=== PATIENT | male | born 1995 | race Caucasian/White ===

== ENCOUNTER 2021-09-27 13:36 | Emergency (ER) | payer MEDICAID, MEDICARE ==
[~2021-09-27] VITALS: Ht 180 cm; Wt 111.0 kg
[2021-09-27 13:36] VITALS: BP 133/85
--- NOTE | 2021-09-27 13:59 | ED Psychosocial ---
General Chief Complaint: Psych/Social Disorder Stated Complaint: PSYCH ISSUES Source: patient Exam Limitations: no limitations History of Present Illness Date Seen by Provider: Sep 27, 2021 Time Seen by Provider: 13:36 Initial Comments Patient to the ER by EMS from [place] [facility] [employer] where he states he is out of his medications, Latuda and want some help getting back on that. He says he [facility] and on his medications from there except they had stopped his Latuda which he says was very successful for him because it was not on formulary. They tried multiple different drugs including Geodon, Vistaril, Zyprexa etc. and he had dystonic reactions from these medications. He is now on Cogentin. He takes Depakote for seizures which he has continued to take. He wants to get back on his Latuda. After [facility] he was using methamphetamines unsuccessfully to treat his depression. Then he went to [facility] for inpatient treatment. While he was at [place] apparently they did not want to continue his Latuda so he decided to sign himself out and caught a ride by a [employer] van from [place] to [place] [employer]. He was trying to contact his ground intelligence officer to let them know that he signed himself out of the inpatient treatment center. He left a voicemail with him but has not heard back. He lives in [place] presently and is on his way there. He has appointments with outpatient psychiatry on October 11, 2 weeks from now. He does not want to wait that long as he is afraid that the temptation to self medicate with methamphetamines will be too high. Allergies and Home Medications Allergies Coded Allergies: No Known Drug Allergies (Unverified , 09/27/21) Patient Home Medication List Home Medication List Reviewed: Yes Review of Systems Constitutional: No chills, No diaphoresis EENTM: No ear discharge, No hearing loss Respiratory: No cough, No short of breath Cardiovascular: No chest pain, No Hx of Intervention Gastrointestinal: No abdominal pain, No nausea Genitourinary: No discharge, No dysuria Musculoskeletal: No back pain, No joint pain All Other Systems Reviewed Negative Unless Noted: Yes Past Rauonis-Tvtkui-Xzdjgr Hx Patient Social History Use of E-Cig and/or Vaping dev: No Substance use?: Yes Substance type: Methamphetamine Physical Exam Capillary Refill : Height, Weight, BMI Height: '" Weight: lbs. oz. kg; BMI Method: General Appearance: WD/WN, no apparent distress HEENT: PERRL/EOMI, pharynx normal Neck: full range of motion, normal inspection Respiratory: lungs clear, normal breath sounds, no respiratory distress, no accessory muscle use Cardiovascular: normal peripheral pulses, regular rate, rhythm Neurologic/Psychiatric: alert, oriented x 3, other (Mildly anxious affect) Thoughts/Hallucinations: other (Denies suicidal or homicidal ideation) Progress/Results/Core Measures Progress Progress Note #1: Time: 13:59 Progress Note We do not have any lurasidone on formulary here at the emergency room. We can however give him a prescription for some across the street at the [facility] pharmacy and he is okay with that plan. We called [facility] and since he does not currently receive services through them he would be greater than 2 weeks for him to get an appointment with the therapist. Called [facility] and left a voicemail for Mitzy BTriston Will discuss whether we can get the patient seen any sooner. Progress Note #2: Time: 14:17 Progress Note Mitzy Basurto is back at 1410. We discussed the case. She looked and could not find a closer date for him to get in. We will provide him with [facility]'s number so he can look for a closer provider than having to come back to [place] for primary care. Patient is speaking to Raegan who is a friend of the family who he says he might be able to stay with for few days and then also has his dad in [place] he can stay with. Called pharmacy and olguin harris would be about $600 for Latuda. Patient states he was only paying $4 for it. Suspicious maybe this is not the right medication. However it is a reasonable medication to use given his circumstances. We will send a prescription over there and he will have to take his Medicaid information over to run it. Departure Impression Primary Impression: Depression Qualified Codes: F32.9 - Major depressive disorder, single episode, unspecified Disposition: 01 HOME, SELF-CARE Condition: Stable Departure-Patient Inst. Decision time for Depature: 14:32 Referrals: [facility] Patient Instructions: Depression, Adult ED Add. Discharge Instructions: We have sent a prescription over for Latuda. If it is prohibitively expensive then I recommend you call [facility] at [phone]. Confirm that Latuda is the actual medication you were taking before. [facility] can be reached at the number listed below. They often can help with expensive medications as well. You can call them and see if you get a closer follow-up appointment horn of their primary care provider teams and apply for access to their extensive pharmacy benefits. All discharge instructions reviewed with patient and/or family. Voiced understanding. Scripts Lurasidone HCl (Latuda) 20 Mg Tablet 20 MG PO DAILY for 14 Days, #14 TAB 0 Refills Prov: LOUIS AGARWAL 09/27/21 Copy Copies To 1: GAUTAM MARTINI DO LOUIS AGARWAL Sep 27, 2021 13:59
[2021-09-27] MEDS ORDERED: LURA20TA PO (14:35)
--- OUTSIDE RECORDS SUMMARY | 2021-10-02 10:07 | XMS REPORT | Clinical Summary ---
Author Author [facility] Organization [facility] Address Unknown Phone Unavailable Care Team Providers Care Service Restorer Emergency Name Role Phone Self, Referral PCP Unavailable Gilberto Dawkins RN Unavailable Unavailable Gavi Jarvis RN Unavailable Unavailable Milagro Chatterjee RN Unavailable Unavailable Source Comments Some departments are not documenting in the electronic medical record. If you d o not see the information that you expected, contact Release of Information in [facility] with [facility] [employer] Information Management department at [phone] for further assistan ce in locating additional records.[facility] Allergies No known active allergies Medications End Date Status Medication Sig Dispensed Refills Start Date Active DIVALPROEX SODIUM Take by 0 (DEPAKOTE PO) mouth. Active ARIPIPRAZOLE (ABILIFY PO) Take by 0 mouth. Active SULFAMETHOXAZOLE/TRIMETHO Take by 0 PRIM (BACTRIM PO) mouth. Active trimethoprim/sulfamethoxa Take by 40 Tab 0 zole (BACTRIM DS) 160/800 mouth Twice 0 mg tablet Daily. Take 2 tabs twice daily x 10 days. Active Problems Not on file Medical History Medical History Date Comments Psychiatric illness Social History Date Tobacco Use Types Packs/Day Years Used Never Assessed Sex Assigned at Date Recorded Not on file Last Filed Vital Signs Reading Time Taken Comments Vital Sign 129/66 11/01/2011 7:57 PM [employer] Blood Pressure 90 11/01/2011 7:57 PM [employer] Pulse 36.8 C (98.3 F) 06/28/2010 10:15 PM CDT Temperature - - Respiratory Rate 96% 11/01/2011 7:57 PM [employer] Oxygen Saturation - - Inhaled Oxygen Concentration 88 kg (194 lb 0.1 oz) 06/23/2010 9:04 PM CDT Weight - - Height - - Body Mass Index Plan of Treatment Health Maintenance Due Date Last Done Comments HIV SCREENING 2009 DTAP/TDAP VACCINES (1 - 2012 Tdap) HEPATITIS C SCREENING 2012 PHYSICAL (COMPREHENSIVE) 2012 EXAM INFLUENZA VACCINE 06/11/2021 HPV VACCINES Aged Out No longer eligible based on patient's age to complete this topic Results Not on filefrom Last 3 Months Care Teams Start Date End Date Service Restorer Emergency Relationship Specialty 01/08/10 Self, Referral PCP - General 09/11/10 Gilberto Dawkins, RN 09/11/10 Gavi Jarvis, DARRELL 11/01/11 Milagro Chatterjee, DARRELL Emergency Medicine
--- OUTSIDE RECORDS SUMMARY | 2021-10-02 10:07 | XMS REPORT | Clinical Summary ---
Author Author [facility] Organization [facility] Address Unknown Phone Unavailable Care Team Providers Care [place]ra [place]ta Setter Name Role Phone PCP Unavailable Allergies Comments Active Allergy Reactions Severity Noted Date Sulfa Antibiotics Hives 03/21/2013 Medications End Date Status Medication Sig Dispensed Refills Start Date Active levothyroxine (SYNTHROID) Take by mouth 0 50 MCG tabletIndications: nightly. Hypothyroidism Indications: Underactive Thyroid Active doxycycline (VIBRA-TABS) Take 100 mg 0 100 MG tabletIndications: by mouth 2 Acneiform Eruption (two) times daily. Indications: Skin Eruption Resembling Acne Active clonidine (CATAPRES) 0.1 Take 0.5 mg 0 MG tablet by mouth nightly. Active trazodone (DESYREL) 100 Take 200 mg 0 MG tablet by mouth nightly. Active haloperidol (HALDOL) 5 MG Inject 125 mg 0 tablet into the muscle every 28 days. Active thiothixene (NAVANE) 5 MG Take 5 mg by 0 capsule mouth 3 (three) times daily. Active Magnesium 500 MG TABS Take 500 mg 0 by mouth every other day. Active docusate sodium (COLACE) Take 200 mg 0 100 MG capsule by mouth nightly. Active cloNIDine (CATAPRES) 0.1 Take 1 tablet 30 tablet 0 07/13/201 MG tablet (0.1 mg 5 total) by mouth daily. Active Problems Problem Noted Date Foreign body in digestive system, unspecified 2012 Hematochezia 03/18/2013 Mood disorder 10/24/2011 ADHD (attention deficit hyperactivity disorder) 10/11 Resolved Problems Problem Noted Date Resolved Date Overdose 10/24/2011 10/26/2011 Social History Date Tobacco Use Types Packs/Day Years Used Quit: 06/13/2011 Current Every Day Smoker Cigars 1 3 Smokeless Tobacco: Never Used Tobacco Cessation: Ready to Quit: No; Co unseling Given: Yes Comments: Quit smoking: Year stopped 2009/Number of yrs: 2.00/Packs per day: 0.50/Pack* Comments Alcohol Use Standard Drinks/Week pt's last drink 3 days ago. No 0 (1 standard drink = 0.6 o z pure alcohol) Alcohol Habits Answer Date Recorded How often do you have a drink containing alcohol? No t asked How many drinks containing alcohol do you have on No t asked a typical day when you are drinking? How often do you have six or more drinks on one Not asked occasion? Comment: pt's last drink 3 days ago. 07/13/2015 [employer] Comments Sexually Active Condom Female Yes Sex Assigned at Date Recorded Not on file Last Filed Vital Signs Reading Time Taken Comments Vital Sign 122/56 07/13/2015 5:30 AM CDT Blood Pressure 81 07/13/2015 5:30 AM CDT Pulse 36.4 C (97.5 F) 07/13/2015 4:15 AM CDT Temperature 16 07/13/2015 5:30 AM CDT Respiratory Rate 100% 07/13/2015 5:30 AM CDT Oxygen Saturation - - Inhaled Oxygen Concentration 90.7 kg (200 lb) 07/13/2015 4:15 AM CDT Weight 182.9 cm (6') 07/13/2015 4:15 AM CDT Height 27.12 07/13/2015 4:15 AM CDT Body Mass Index Plan of Treatment Health Maintenance Due Date Last Done Comments Varicella Vaccines (1 of 1995 2 - 2-dose childhood series) COVID-19 Vaccine (1) 1999 Hepatitis C Screening 2012 DTaP,Tdap,and Td Vaccines 2013 (1 - Tdap) MMR Vaccines-Adult 2013 Influenza Vaccine (#1) 2021 Pneumo-Vaccine: 65+Yrs (1 2059 of 1 - PPSV23) HIB Vaccines Aged Out No longer eligible based on patient's age to complete this topic IPV Vaccines Aged Out No longer eligible based on patient's age to complete this topic Meningococcal Vaccine Aged Out No longer eligib le based on patient's age to complete this topic Pneumo-Vaccine: Peds (0-5 Aged Out No longer el igible based on patient's age to Yrs) & At-Risk Patients complete this topic (6-64 Yrs) Rotavirus Vaccines Aged Out No longer eligible based on patient's age to complete this topic Results Not on filefrom Last 3 Months
== END 2021-09-27 14:42 | disposition home or self-care (01) ==
LOC: ER 13:36
DX: F32.9 Major depressive disorder, single episode, unspecified (principal)
CPT/HCPCS: 99284